=== PATIENT | male | born 2000 | race African-American/Black ===

== ENCOUNTER 2020-08-10 18:20 | Emergency (ER) | payer MEDICAID ==
[~2020-08-10] VITALS: Ht 182.9 cm; Wt 77.0 kg
[2020-08-10] MEDS ORDERED: IBUPROFEN 600MG TABLET PO ONE (19:00)
[2020-08-10] MEDS ORDERED: BACITRACIN ZINC OINT UDPKT TOP ONE (19:15)
[2020-08-10] MEDS ORDERED: LIDOCAINE HCL/EPINEPHRINE 1%-EPI 1:100,000 20 ML VIAL INFIL ONE (19:15)
[2020-08-10 19:45] VITALS: BP 131/52
[2020-08-10] MEDS ORDERED: TETANUS, DIPHTHERIA, PERTUSSIS VAC/PF 0.5ML (>7YR OLD) IM ONE (20:45)
== END 2020-08-10 21:28 | disposition home or self-care (01) ==
LOC: ER 18:20
DX: S61.411A Laceration without foreign body of right hand, initial encounter (principal); W25.XXXA Contact with sharp glass, initial encounter; Y93.89 Activity, other specified; Y92.89 Other specified places as the place of occurrence of the external cause; Y99.8 Other external cause status
CPT/HCPCS: 12002; 73120; 90471; 90715; 99283; J3490; Z7610